=== PATIENT | male | born 1975 | race Two or more races ===

== ENCOUNTER 2018-08-02 11:10 | Emergency (ER) | payer OTHER ==
[~2018-08-02] VITALS: Ht 180.3 cm; Wt 90.3 kg
--- NOTE | 2018-08-02 11:32 | NUR ---
patient presented to the ER c/o chest sharp pain, non radiating. 7/10 pain scale level, 45 mins REGULATORY AFFAIRS COORDINATOR. On room air, breathing evenly, and unlabored. connected to the monitor, and pulse ox. kept comfortable, will continue to monitor accordingly.
[2018-08-02] MEDS ORDERED: ASPIRIN 325 MG TABLET ONE (11:41)
[2018-08-02] MEDS ORDERED: NITROGLYCERIN 0.4 MG/TAB BOTTLE ONE (11:41)
[2018-08-02 11:43] LABS: BASOPHILS % (AUTO) 0.5 % (0.0-2.0); EOSINOPHILS % (AUTO) 1.2 % (0.0-6.0); HEMATOCRIT 47 % (39-51); HEMOGLOBIN 15.9 g/dL (13.5-17.5); LYMPHOCYTES # (AUTO) 2.7 /CMM (0.8-4.8); LYMPHOCYTES % (AUTO) 46.6 % (20.0-44.0); MEAN CORPUSCULAR HGB CONC 34 g/dl (31.0-36.0); MEAN CORPUSCULAR VOLUME 85 fL (80-96); MONOCYTES # (AUTO) 0.6 /CMM (0.1-1.30); MONOCYTES % (AUTO) 10.3 % (2.0-12.0); NEUTROPHILS # (AUTO) 2.4 /CMM (1.8-8.9); NEUTROPHILS % (AUTO) 41.4 % (43.0-81.0); PLATELET COUNT (AUTO) 205 /CMM (150-450); WHITE BLOOD COUNT (AUTO) 5.9 K/uL (4.3-11.0)
[2018-08-02 11:55] LABS: CALCIUM, SERUM 8.9 mg/dL (8.5-10.1); CARBON DIOXIDE 27 mmol/L (21-32); CHLORIDE 103 mmol/L (98-107); GLUCOSE 87 mg/dL (74-106); SODIUM SERUM 138 mmol/L (136-145); UREA NITROGEN, BLOOD 20 mg/dL (7-18)
[2018-08-02] MEDS ORDERED: NITROGLYCERIN 0.4 MG/TAB BOTTLE SL ONE (12:00)
[2018-08-02] MEDS ORDERED: ASPIRIN 325 MG TABLET PO ONE (12:00)
--- NOTE | 2018-08-02 14:15 | NUR ---
PER ADMITTING PT WILL GO TO [facility], MORE INFO TO FOLLOW
--- NOTE | 2018-08-02 15:22 | NUR ---
received a call from annelise vela patient is going to [facility]. will call back for bed number and rest of info.
--- NOTE | 2018-08-02 15:36 | NUR ---
REGTERENCE CALLED, NUMBER TO GIVEN REPORT, [phone], PT GOING TO [id number]
--- NOTE | 2018-08-02 15:47 | NUR ---
CALLED [facility] AND SPOKE TO LASHELL ANTOINE AND REPORT GIVEN.
[2018-08-02 17:16] VITALS: BP 135/72
--- NOTE | 2018-08-02 17:18 | NUR ---
patient left via gurney accompanide by 2 emt's in no apparent distress noted.
== END 2018-08-02 17:18 | disposition short-term general hospital (02) ==
LOC: ER 11:14
DX: R07.89 Other chest pain (principal); R06.00 Dyspnea, unspecified; E78.00 Pure hypercholesterolemia, unspecified; F12.10 Cannabis abuse, uncomplicated
CPT/HCPCS: 36415; 71045; 80048; 84484; 85025; 85730; 87081; 93005; 99285; A4606

== ENCOUNTER 2021-01-30 13:22 | Inpatient (IN) | payer OTHER ==
[~2021-01-30] VITALS: Ht 170.2 cm; Wt 81.6 kg
[2021-01-30] MEDS ORDERED: ACETAMINOPHEN 325 MG TABLET PO ONE (14:30)
[2021-01-30] MEDS ORDERED: IBUPROFEN 600 MG TABLET PO ONE (14:30)
[2021-01-30] MEDS ORDERED: ACETAMINOPHEN 325 MG TABLET ONE (14:43)
[2021-01-30] MEDS ORDERED: IBUPROFEN 600 MG TABLET ONE (14:43)
--- NOTE | 2021-01-30 14:49 | NUR ---
TO ER BED 6. AAOX4. NOT IN DISTRESS, BUT SATTING @ 90% ON RA. AMBULATORY. CAME IN FOR LOW 02S AT AND SOB. PT REPORTS BEING COVID POSITIVE X 5 DAYS AGO. PT IS NOTED W/ SAT OF 90% ON RA. PLACED ON O2 VIA NC. WAS AT THE BEDSIDE FOR EVAL. ORDERS RECEIVED, NOTED AND CARRIED OUT.
[2021-01-30] MEDS ORDERED: AMOX-430 PO (14:59)
[2021-01-30] MEDS ORDERED: AZIT250T PO (14:59)
[2021-01-30] MEDS ORDERED: IBUP-1955 PO (15:00)
--- NOTE | 2021-01-30 15:08 | NUR ---
O2 REMOVED BY DR. ESPINOZA, TO HAVE ABG DONE IN 30 MINS, RT MADE AWARE
[2021-01-30 16:11] LABS: ABG BASE EXCESS 1.2 mmol/L; ABG OXYGEN SATURATION 93.9 % (92.0-98.5); ABG PCO2 35.2 mmHg (35.0-45.0); ABG PO2 62.7 mmHg (75.0-100.0); AaDO2 44.9 mmHg; COHb 0.7 % (0.5-1.5); MetHb 0.3 % (0.0-1.5); SITE, ABG Right Radial; VENT MODE, BG ROOM AIR
[2021-01-30] MEDS ORDERED: DEXAMETHASONE SOD PHOSPHATE 10 MG/ML VIAL ONE (16:28)
[2021-01-30] MEDS ORDERED: DEXAMETHASONE SOD PHOSPHATE 10 MG/ML VIAL IV ONE (16:30)
[2021-01-30] MEDS ORDERED: CEFTRIAXONE 1 G in IV D5W 50 ML IV ONE (16:30)
[2021-01-30] MEDS ORDERED: AZITHROMYCIN 500 MG in IV D5W 250 ML IV ONE (16:30)
[2021-01-30 17:15] LABS: BASOPHILS % (AUTO) 0.6 % (0.0-2.0); EOSINOPHILS % (AUTO) 0.2 % (0.0-6.0); HEMATOCRIT 49 % (39-51); HEMOGLOBIN 16.7 g/dL (13.5-17.5); LYMPHOCYTES # (AUTO) 0.6 K/uL (0.8-4.8); LYMPHOCYTES % (AUTO) 12.3 % (20.0-44.0); MEAN CORPUSCULAR HGB CONC 34 g/dl (31.0-36.0); MEAN CORPUSCULAR VOLUME 84 fL (80-96); MONOCYTES # (AUTO) 0.2 K/uL (0.1-1.30); MONOCYTES % (AUTO) 4.2 % (2.0-12.0); NEUTROPHILS # (AUTO) 4.4 K/uL (1.8-8.9); NEUTROPHILS % (AUTO) 82.7 % (43.0-81.0); PLATELET COUNT (AUTO) 140 K/uL (150-450); RED BLOOD CELL COUNT(AUTO) 5.76 MIL/uL (4.5-6.0); WHITE BLOOD COUNT (AUTO) 5.3 K/uL (4.3-11.0)
[2021-01-30 17:24] LABS: CALCIUM, SERUM 8.7 mg/dL (8.5-10.1); CARBON DIOXIDE 28 mmol/L (21-32); CHLORIDE 98 mmol/L (98-107); CREATININE 1.3 mg/dL (0.6-1.3); GLUCOSE 121 mg/dL (74-106); POTASSIUM 3.8 mmol/L (3.5-5.1); SODIUM SERUM 136 mmol/L (136-145); UREA NITROGEN, BLOOD 23 mg/dL (7-18)
[2021-01-30 17:30] LABS: ALANINE AMINOTRANSFERASE 52 U/L (12-78); ALBUMIN 3.3 g/dL (3.4-5.0); ALKALINE PHOSPHATASE 58 U/L (46-116); ASPARTATE AMINOTRANSFERASE 69 U/L (15-37); BILIRUBIN,TOTAL 0.5 mg/dL (0.2-1.0); TOTAL PROTEIN, SERUM 7.7 g/dL (6.4-8.2)
[2021-01-30 18:10] LABS: D-DIMER 0.93 mg/L(FEU (0.17-0.50)
[2021-01-30] MEDS ORDERED: MULT-447 PO (18:17)
[2021-01-30] MEDS ORDERED: ATOR10TA PO (18:17)
--- NOTE | 2021-01-30 18:21 | NUR ---
PT'S COVID ANTIGEN SWAB CANCELLED AND CHANGED TO COVID PCR BECAUSE PT IS STAYING INSTEAD OF BEING TRANSPORTED.
[2021-01-30 18:46] LABS: CREATINE KINASE, TOTAL 2022 U/L (39-308); FERRITIN 1996 ng/mL (8-388)
[2021-01-30] MEDS ORDERED: IOHEXOL-350 100 ML VIAL IV ONE (18:47)
[2021-01-30] MEDS ORDERED: CT SWABBABLE VALVE TRANS SET 1 EA INFUS.SET MC ONE (18:47)
[2021-01-30] MEDS ORDERED: IV NS 0.9% 250 ML IV ONE (18:47)
--- NOTE | 2021-01-30 22:55 | NUR ---
RN NOTE REPORT RECEIVED FROM ELINA VIGIL.
--- NOTE | 2021-01-30 22:59 | NUR ---
REPORT GIVEN TO ELINA REYES FOR CARLOS ALBERTO
--- NOTE | 2021-01-30 23:11 | NUR ---
PT TRANSPORTED TO UNIT ON [place] [address] WITH WITH ACLS PROTOCOL. NAD NOTED DURING TRANSPORT. PT AMBULATED FROM GURNEY TO BED W/O ASSIST
--- NOTE | 2021-01-30 23:13 | NUR ---
RN NOTE PT TRANSFERRED FROM ER VIA GURNEY. PT IS ON OF VIA [place] SHOWING NO SIGNS OF RESP DISTRESS. PT IS A&OX4. SKIN INTACT. PT IS AMBULATORY. IV LINE ON LEFT AC #18 NOTED. IV LINE FLUSHED, PATENT, AND INTACT WITH NO INFILTRATION. ALL SAFETY MEASURES IMPLEMENTED. CALL LIGHT WITHIN REACH. BED ALARM ON. CALL LIGHT WITHIN REACH. WILL CONTINUE TO MONITOR THROUGHOUT THE SHIFT.
[2021-01-31] VITALS: BP 108/71
[2021-01-31] MEDS ORDERED: ZOLPIDEM TARTRATE 5 MG TABLET PO PRN (00:30)
[2021-01-31 04:00] VITALS: BP 111/78
--- NOTE | 2021-01-31 07:00 | NUR ---
RN NOTES NO CHANGES IN PT CONDITION DURING SHIFT. PT IS ON 2L OF VIA NC SHOWING NO SIGNS OF RESP DISTRESS. PT IS A&OX4. IV LINE ON LEFT AC #18 NOTED. IV LINE FLUSHED, PATENT, AND INTACT WITH NO INFILTRATION. ALL MEDS GIVEN ORDERED. PT KEPT CLEAN AND COMFORTABLE. ALL SAFETY MEASURES IMPLEMENTED. CALL LIGHT WITHIN REACH. BED ALARM ON. CALL LIGHT WITHIN REACH. ENDORSED TO MORNING SHIFT RN FOR CARLOS ALBERTO.
[2021-01-31 07:03] LABS: BASOPHILS % (AUTO) 0.1 % (0.0-2.0); HEMATOCRIT 47 % (39-51); HEMOGLOBIN 16.7 g/dL (13.5-17.5); LYMPHOCYTES # (AUTO) 0.7 K/uL (0.8-4.8); LYMPHOCYTES % (AUTO) 17.5 % (20.0-44.0); MEAN CORPUSCULAR HGB CONC 35 g/dl (31.0-36.0); MEAN CORPUSCULAR VOLUME 84 fL (80-96); MONOCYTES # (AUTO) 0.3 K/uL (0.1-1.30); MONOCYTES % (AUTO) 7.4 % (2.0-12.0); NEUTROPHILS # (AUTO) 3.1 K/uL (1.8-8.9); PLATELET COUNT (AUTO) 144 K/uL (150-450); RED BLOOD CELL COUNT(AUTO) 5.66 MIL/uL (4.5-6.0); WHITE BLOOD COUNT (AUTO) 4.2 K/uL (4.3-11.0)
--- NOTE | 2021-01-31 07:20 | NUR ---
RN NOTES PATIENT RECEIVED IN BED, ALERT AND ORIENTED X4. PATIENT ON NASAL CANNULA 2 LITERS, DENIES SOB WITH EVEN NON-LABORED BREATHING, WITH NON-PRODUCTIVE COUGH. IV ACCESS INTACT AND PATENT. SKIN WARM AND DRY TO TOUCH. PATIENT DENIES ANY PAIN OR DISCOMFORT AT THIS TIME. SAFETY PRECAUTIONS IMPLEMENTED WITH BED LOCKED, BILATERAL SIDE RAILS UP, BED IN THE LOWEST POSITION, AND CALL LIGHT WITHIN EASY REACH. WILL CONTINUE TO MONITOR PATIENT.
[2021-01-31 08:00] VITALS: BP 131/68
[2021-01-31 08:16] LABS: C-REACTIVE PROTEIN 7.2 mg/dL (0.0-0.9)
[2021-01-31 08:18] LABS: CALCIUM, SERUM 8.8 mg/dL (8.5-10.1); CREATININE 1.1 mg/dL (0.6-1.3)
[2021-01-31] MEDS: ACETAMINOPHEN 325 MG TABLET PO PRN ×2 (08:48→20:11)
[2021-01-31] MEDS ORDERED: DEXAMETHASONE SOD PHOSPHATE 10 MG/ML VIAL IV SCH (09:00)
[2021-01-31] MEDS ORDERED: REMDESIVIR (CHARGED) 200 MG, *LOADING DOSE 1 EA in IV NS 0.9% 210 ML IV ONE (11:00)
[2021-01-31 12:00] VITALS: BP 108/57
[2021-01-31] MEDS: CEFTRIAXONE 1 G in IV D5W 50 ML IV SCH (15:00)
[2021-01-31 16:00] VITALS: BP 133/71
[2021-01-31] MEDS: AZITHROMYCIN 500 MG in IV D5W 250 ML IV SCH (16:00)
--- NOTE | 2021-01-31 18:18 | NUR ---
LICENSING COORDINATOR NOTES PATIENT IN BED RESTING COMFORTABLY. ALERT AND ORIENTED X4. ON NASAL CANNULA 2 LITERS, WITH NO SIGNS OF RESPIRATORY DISTRESS WITH NON-PRODUCTIVE COUGH PRESENT. PATIENT ON TELE MONITOR SR 90S. SKIN KEPT CLEAN, WARM, AND DRY TO TOUCH. IV ACCESS INTACT AND PATENT SALINE LOCK. PATIENT DENIES ANY PAIN OR DISCOMFORT. MET ALL OF PATIENT'S NEEDS. SAFETY PRECAUTIONS IMPLEMENTED WITH BED LOCKED, BILATERAL SIDE RAILS UP, BED IN THE LOWEST POSITION, AND CALL LIGHT WITHIN EASY REACH. WILL ENDORSE PLAN OF CARE TO UPCOMING RN.
--- NOTE | 2021-01-31 19:30 | NUR ---
RN NOTE RECEIVED PATIENT IN BED. ON COVID ISOLATION. A/OX3. ON OXYGEN 2L/MIN VIA NASAL CANNULA. RESPIRATIONS ARE EVEN AND UNLABORED. NO S/S SOB NOTED. NO S/O PAIN AT THIS TIME. EXTERNAL TELE MONITOR READS SINUS TACHYCARDIA HR 104. IN NO APPARENT DISTRESS. IV ACCESS IN LAC#18 PATENT AND SALINE LOCKED. BED IS LOW AND LOCKED, HOB ELEVATED IN SEMI FOWLERS, SIDE RIALS UP X2, CALL LIGHT WITHIN REACH. WILL CONTINUE TO MONITOR THROUGHOUT SHIFT.
[2021-01-31 20:00] VITALS: BP 111/68
--- NOTE | 2021-01-31 20:11 | NUR ---
RN NOTE ADMNISTERED PRN TYLENOL 650MG FOLR TEMP 100.8. ALSO ADMNISTERED PRN AMBIEN 5MG PER PATIENT REQUEST FOR SLEEP. ALSO REQUESTED EAR PLUGS BUT THERE IS NONE AVAILABLE AT THIS TIME.
[2021-02-01] VITALS: BP 117/68
[2021-02-01 04:00] VITALS: BP 130/72
[2021-02-01] MEDS: ACETAMINOPHEN 325 MG TABLET PO PRN (04:50)
[2021-02-01 06:11] LABS: BASOPHILS % (AUTO) 0.1 % (0.0-2.0); HEMATOCRIT 43 % (39-51); HEMOGLOBIN 15.6 g/dL (13.5-17.5); LYMPHOCYTES % (AUTO) 14.2 % (20.0-44.0); MEAN CORPUSCULAR HGB CONC 36 g/dl (31.0-36.0); MEAN CORPUSCULAR VOLUME 83 fL (80-96); MONOCYTES # (AUTO) 0.7 K/uL (0.1-1.30); MONOCYTES % (AUTO) 10.4 % (2.0-12.0); NEUTROPHILS # (AUTO) 5.4 K/uL (1.8-8.9); NEUTROPHILS % (AUTO) 75.3 % (43.0-81.0); PLATELET COUNT (AUTO) 164 K/uL (150-450); RED BLOOD CELL COUNT(AUTO) 5.23 MIL/uL (4.5-6.0); WHITE BLOOD COUNT (AUTO) 7.1 K/uL (4.3-11.0)
[2021-02-01 06:30] LABS: ALBUMIN 2.9 g/dL (3.4-5.0); BILIRUBIN,TOTAL 0.4 mg/dL (0.2-1.0); CALCIUM, SERUM 8.4 mg/dL (8.5-10.1); CREATININE 1.1 mg/dL (0.6-1.3); POTASSIUM 4.1 mmol/L (3.5-5.1)
--- NOTE | 2021-02-01 07:02 | NUR ---
RN NOTE ON COVID ISOLATION. A/OX3. ON OXYGEN 4L/MIN VIA NASAL CANNULA. NO S/O PAIN AT THIS TIME. TYLENOL GIVEN THROUGHOUT SHIFT FOR TEMP. TELE MONITOR READS SINUS TACHYCARDIA/ SINUS RHYTHM. NO DISTRESS. IV ACCESS IN LAC#18 BED IS LOW AND LOCKED, HOB ELEVATED IN SEMI FOWLERS, SIDE RIALS UP X2, CALL LIGHT WITHIN REACH. PATIENT WAS ABLE TO DO SELF PRONING. WILL ENDORSE TO ONCOMING SHIFT.
--- NOTE | 2021-02-01 07:43 | NUR ---
RN OPENING NOTES RECEIVED PT WALKING AROUND IN ROOM. ALERT AND ORIENTED X4. NO C/O PAIN NOTED. ON NASAL CANNULA 2 LITERS, NO C/O SOB. NON-PRODUCTIVE COUGH PRESENT. IV ACCESS INTACT, PATENT W/ NO SIGNS OF INFILTRATION. PT BED LOCKED, BILATERAL SIDE RAILS UP, BED IN THE LOWEST POSITION, AND CALL LIGHT WITHIN REACH. WILL CONTINUE TO MONITOR.
[2021-02-01 08:00] VITALS: BP 121/71
[2021-02-01] MEDS: DEXAMETHASONE SOD PHOSPHATE 10 MG/ML VIAL IV SCH ×3 (08:40→23:59)
--- NOTE | 2021-02-01 09:31 | NUR ---
MD NAE FELICIANO. UPDATED DR. REGARDING PT CURRENT CONDITION. WILL CONTINUE TO MONITOR.
[2021-02-01] MEDS: REMDESIVIR (CHARGED) 100 MG in IV NS 0.9% 100 ML IV SCH (11:11)
[2021-02-01 12:01] VITALS: BP 130/90
[2021-02-01] MEDS: CEFTRIAXONE 1 G in IV D5W 50 ML IV SCH (15:39)
[2021-02-01 16:00] VITALS: BP 132/82
[2021-02-01] MEDS: AZITHROMYCIN 500 MG in IV D5W 250 ML IV SCH (16:40)
--- NOTE | 2021-02-01 18:02 | NUR ---
RN CLOSING NOTES PT WALKING AROUND IN ROOM. ALERT AND ORIENTED X4. NO C/O PAIN NOTED. ON NASAL CANNULA 2 LITERS, BUT IS ABLE TO TOLERATE ROOM AIR. NO C/O SOB. PT HAS BEEN SLEEPING ON AND OFF IN PRONE POSITION. IV ACCESS FLUSHED,PATENT AND INTACT W/ NO SIGNS OF INFILTRATION. 1ST BAG OF REMDESIVIR GIVEN. PT KEPT CLEAN, DRY AND COMFORTABLE. PT BED LOCKED, BILATERAL SIDE RAILS UP, BED IN THE LOWEST POSITION, AND CALL LIGHT WITHIN REACH. ENDORSE TO SSN/SSBN ASSISTANT NAVIGATOR NURSE. .
--- NOTE | 2021-02-01 19:46 | NUR ---
RN NOTE PATIENT ALERT AND ORIENTED X4, ABLE TO MAKE NEEDS KNOWN. AMBULATORY, GAIT STEADY. ON O2 4L VIA NASAL CANNULA, O2 SAT 94%. DENIES ANY PAIN OR DISCOMFORT AT THIS TIME. IV ACCESS ON LEFT AC # 18, PATENT AND INTACT. BED LOCKED AND IN LOWEST POSITION. CALL LIGHT WITHIN REACH. ALL NEEDS ANTICIPATED.
[2021-02-01 20:00] VITALS: BP 134/84
[2021-02-02] VITALS: BP 122/71
[2021-02-02 04:00] VITALS: BP 109/59
[2021-02-02 06:19] LABS: BASOPHILS % (AUTO) 0.1 % (0.0-2.0); HEMATOCRIT 45 % (39-51); HEMOGLOBIN 16.1 g/dL (13.5-17.5); LYMPHOCYTES # (AUTO) 0.8 K/uL (0.8-4.8); LYMPHOCYTES % (AUTO) 14.3 % (20.0-44.0); MEAN CORPUSCULAR HGB CONC 36 g/dl (31.0-36.0); MEAN CORPUSCULAR VOLUME 83 fL (80-96); MONOCYTES # (AUTO) 0.8 K/uL (0.1-1.30); MONOCYTES % (AUTO) 14.5 % (2.0-12.0); NEUTROPHILS # (AUTO) 3.9 K/uL (1.8-8.9); NEUTROPHILS % (AUTO) 71.1 % (43.0-81.0); PLATELET COUNT (AUTO) 161 K/uL (150-450); RED BLOOD CELL COUNT(AUTO) 5.39 MIL/uL (4.5-6.0); WHITE BLOOD COUNT (AUTO) 5.5 K/uL (4.3-11.0)
[2021-02-02 06:28] LABS: ALBUMIN 2.8 g/dL (3.4-5.0); BILIRUBIN,TOTAL 0.5 mg/dL (0.2-1.0); CALCIUM, SERUM 8.4 mg/dL (8.5-10.1); CREATININE 0.9 mg/dL (0.6-1.3); POTASSIUM 4.2 mmol/L (3.5-5.1)
--- NOTE | 2021-02-02 06:52 | NUR ---
RN NOTE PATIENT ALERT AND ORIENTED X4. ON O2 4L VIA NASAL CANNULA, NO SIGNS OF RESPIRATORY DISTRESS. DENIES ANY PAIN OR DISCOMFORT AT THIS TIME. IV ACCESS ON LEFT AC # 18, PATENT AND INTACT. SLEPT ON PRONE POSITION LAST NIGHT. ALL DUE MEDS GIVEN ORDERED. BED LOCKED AND IN LOWEST POSITION. CALL LIGHT WITHIN REACH. WILL ENDORSE TO AM SHIFT.
[2021-02-02 07:29] LABS: C-REACTIVE PROTEIN 3.7 mg/dL (0.0-0.9)
[2021-02-02] MEDS: DEXAMETHASONE SOD PHOSPHATE 10 MG/ML VIAL IV SCH ×2 (10:00→17:44)
[2021-02-02] MEDS: REMDESIVIR (CHARGED) 100 MG in IV NS 0.9% 100 ML IV SCH (11:39)
[2021-02-02 11:49] VITALS: BP 112/68
[2021-02-02 12:55] VITALS: BP 110/60
[2021-02-02] MEDS: AZITHROMYCIN 250 MG TABLET PO SCH (17:44)
[2021-02-02] MEDS: CEFTRIAXONE 1 G in IV D5W 50 ML IV SCH (17:47)
[2021-02-02 19:01] VITALS: BP 110/60
[2021-02-02 20:00] VITALS: BP 118/85
--- NOTE | 2021-02-02 20:00 | NUR ---
BIT SHARPENER OPERATOR NOTES PATIENT IN BED ALERT AND ORIENTED X4. ON NASAL CANNULA 4 LITERS, WITH NO SIGNS OF RESPIRATORY DISTRESS NO SOB NO DISTRESS NOTED . ON TELE MONITOR SR 78. SKIN KEPT CLEAN, WARM, AND DRY TO TOUCH. IV ACCESS INTACT AND PATENT SALINE LOCK. PATIENT DENIES ANY PAIN OR DISCOMFORT. ALL NEEDS ATTENDED TOO . SAFETY PRECAUTIONS IMPLEMENTED WITH BED LOCKED, BILATERAL SIDE RAILS UP, BED IN THE LOWEST POSITION, AND CALL LIGHT WITHIN EASY REACH, V/S STABLE AFEBRILE ,WILL CONTINUE TO MONITOR PTS.
[2021-02-03] VITALS: BP 120/74
[2021-02-03] MEDS: DEXAMETHASONE SOD PHOSPHATE 10 MG/ML VIAL IV SCH ×3 (01:07→20:11)
[2021-02-03 04:00] VITALS: BP 114/79
--- NOTE | 2021-02-03 05:34 | NUR ---
RN NOTE PATIENT AWAKE IN BED, ALERT AND ORIENTED X4, ABLE TO VERBALIZE NEEDS, ON IV ATB NO ASE NOTED, ON 4 LITERS BREATHING EVEN AND UNLABORED, ALL NEEDS ATTENDED TOO , WILL ENDORSED TO RN DAY SHIFT FOR CONTINUITY OF CARE
--- NOTE | 2021-02-03 07:10 | NUR ---
RN OPENING NOTES RECEIVED PT IN BED AWAKE, A/O X4. ON O2 VIA NASAL CANNULA 4L. NO SOB OR ANY S/S OF RESPIRATORY DISTRESS NOTED. TELE MONITOR READING SR. IV ACCESS INTACT AND PATENT. NO PAIN OR DISCOMFORT REPORTED AT THIS TIME. SAFETY MEASURES IMPLEMENTED. CALL LIGHT WITHIN REACH. BED LOCKED AND IN LOWEST POSITION WITH SIDE RAILS UP X2. WILL CONTINUE TO MONITOR.
[2021-02-03 08:00] VITALS: BP_SYST 116; BP_SYST 147; BP_DIAS 67; BP_DIAS 93
[2021-02-03 12:00] VITALS: BP 115/75
[2021-02-03 12:34] LABS: BASOPHILS % (AUTO) 0.1 % (0.0-2.0); HEMATOCRIT 46 % (39-51); HEMOGLOBIN 15.9 g/dL (13.5-17.5); LYMPHOCYTES # (AUTO) 0.7 K/uL (0.8-4.8); LYMPHOCYTES % (AUTO) 7.6 % (20.0-44.0); MEAN CORPUSCULAR HGB CONC 34 g/dl (31.0-36.0); MEAN CORPUSCULAR VOLUME 86 fL (80-96); MONOCYTES # (AUTO) 1.1 K/uL (0.1-1.30); MONOCYTES % (AUTO) 12.3 % (2.0-12.0); NEUTROPHILS # (AUTO) 7.1 K/uL (1.8-8.9); PLATELET COUNT (AUTO) 198 K/uL (150-450); WHITE BLOOD COUNT (AUTO) 8.9 K/uL (4.3-11.0)
[2021-02-03 13:04] LABS: CALCIUM, SERUM 8.9 mg/dL (8.5-10.1); POTASSIUM 4.8 mmol/L (3.5-5.1)
[2021-02-03 13:10] LABS: ALBUMIN 2.8 g/dL (3.4-5.0); BILIRUBIN,DIRECT 0.2 mg/dL (0.0-0.2); BILIRUBIN,TOTAL 0.5 mg/dL (0.2-1.0); TOTAL PROTEIN, SERUM 6.9 g/dL (6.4-8.2)
[2021-02-03] MEDS: REMDESIVIR (CHARGED) 100 MG in IV NS 0.9% 100 ML IV SCH (13:42)
[2021-02-03] MEDS: CEFTRIAXONE 1 G in IV D5W 50 ML IV SCH (15:34)
[2021-02-03 16:00] VITALS: BP 118/76
[2021-02-03] MEDS: AZITHROMYCIN 250 MG TABLET PO SCH (16:46)
--- NOTE | 2021-02-03 18:47 | NUR ---
RN CLOSING NOTES NO SIGNIFICANT CHANGES THROUGHOUT THE SHIFT. NO SOB OR ANY DISTRESS NOTED. NO PAIN REPORTED AT THIS TIME. ALL DUE MEDS GIVEN. KEPT CLEAN AND COMFORTABLE. SAFETY MEASURES IN PLACE. WILL ENDORSE TO NIGHT RN FOR CARLOS ALBERTO.
[2021-02-03 20:00] VITALS: BP 136/70
--- NOTE | 2021-02-03 20:00 | NUR ---
ROOM SERVER NOTES PATIENT IN BED ALERT AND ORIENTED X4. ON NASAL CANNULA 4 LITERS, WITH NO SIGNS OF RESPIRATORY DISTRESS NO SOB NO DISTRESS NOTED . ON TELE MONITOR SR 76. SKIN KEPT CLEAN, WARM, AND DRY TO TOUCH. IV ACCESS INTACT AND PATENT SALINE LOCK. PATIENT DENIES ANY PAIN OR DISCOMFORT. ALL NEEDS ATTENDED TOO . SAFETY PRECAUTIONS IMPLEMENTED WITH BED LOCKED, BILATERAL SIDE RAILS UP, BED IN THE LOWEST POSITION, AND CALL LIGHT WITHIN EASY REACH, V/S STABLE AFEBRILE ,WILL CONTINUE TO MONITOR PTS.
[2021-02-04] VITALS: BP 134/80
[2021-02-04 04:00] VITALS: BP 117/74
[2021-02-04 06:20] LABS: HEMATOCRIT 45 % (39-51); HEMOGLOBIN 15.5 g/dL (13.5-17.5); LYMPHOCYTES # (AUTO) 0.9 K/uL (0.8-4.8); MEAN CORPUSCULAR HGB CONC 34 g/dl (31.0-36.0); MEAN CORPUSCULAR VOLUME 85 fL (80-96); MONOCYTES # (AUTO) 1.1 K/uL (0.1-1.30); MONOCYTES % (AUTO) 13.2 % (2.0-12.0); NEUTROPHILS # (AUTO) 6.1 K/uL (1.8-8.9); NEUTROPHILS % (AUTO) 75.8 % (43.0-81.0); PLATELET COUNT (AUTO) 211 K/uL (150-450); RED BLOOD CELL COUNT(AUTO) 5.35 MIL/uL (4.5-6.0); WHITE BLOOD COUNT (AUTO) 8.1 K/uL (4.3-11.0)
[2021-02-04 06:28] LABS: ALBUMIN 2.6 g/dL (3.4-5.0); BILIRUBIN,DIRECT 0.2 mg/dL (0.0-0.2); BILIRUBIN,TOTAL 0.6 mg/dL (0.2-1.0); CALCIUM, SERUM 8.3 mg/dL (8.5-10.1); CREATININE 0.9 mg/dL (0.6-1.3); POTASSIUM 4.8 mmol/L (3.5-5.1); TOTAL PROTEIN, SERUM 6.4 g/dL (6.4-8.2)
--- NOTE | 2021-02-04 06:35 | NUR ---
RN NOTE PATIENT AWAKE IN BED, ALERT AND ORIENTED X4, ABLE TO VERBALIZE NEEDS, ON IV ATB NO ASE NOTED, ON 4 LITERS of [id number] NO DISTRESS NOTED. BREATHING EVEN AND UNLABORED, ALL NEEDS ATTENDED TOO , WILL ENDORSED TO RN DAY SHIFT FOR CONTINUITY OF CARE
--- NOTE | 2021-02-04 07:35 | NUR ---
METAL GRADER OPENING NOTES RECEIVED PATIENT IN BED, AWAKE, A/O X4. PATIENT ON OXYGEN THERAPY @ 4 LPM VIA NASAL CANULA; BREATHING EVEN AND UNLABORED, NO SOB PRESENT AT THIS TIME. TELE MONITOR WITH A CURRENT READING OF SR 82. NO COMPLAINS OF PAIN. IV ACCESS ON LAC G #18, SL PRESENT AND INTACT. SAFETY PRECAUTIONS IN PLACE; BED IN LOW POSITION AND LOCKED, RAILS UP X2, CALL LIGHT WITHIN REACH. WILL CONTINUE TO MONITOR PATIENT.
[2021-02-04] MEDS: DEXAMETHASONE SOD PHOSPHATE 10 MG/ML VIAL IV SCH (08:22)
[2021-02-04] MEDS ORDERED: DEXA6TAB6 PO (08:28)
[2021-02-04 09:15] VITALS: BP 102/68
[2021-02-04 12:04] VITALS: BP 105/69
[2021-02-04] MEDS: REMDESIVIR (CHARGED) 100 MG in IV NS 0.9% 100 ML IV SCH (14:03)
[2021-02-04] MEDS: CEFTRIAXONE 1 G in IV D5W 50 ML IV SCH (15:15)
--- NOTE | 2021-02-04 16:51 | NUR ---
BOILER BLOWERTINNER HELPER NOTES PATIENT DISCHARGED HOME IN MEDICALLY STABLE CONDITION. PATIENT A/O X4, ON ROOM AIR, ABLE TO MAKE NEED KNOWN. ALL DISCHARGE PAPERWORK READY; TEACHING PROVIDED TO PATIENT REGARDING PRESCRIPTION AND PHYSICIAN INSTRUCTIONS; PATIENT VERBALIZED UNDERSTANDING. BELONGINGS ACCOUNTED FOR AND FORM SIGNED WELL. SKIN INTACT. IV ACCESS REMOVED PRIOR PATIENT LEAVING THE FLOOR. PATIENT LEFT THE UNIT WEARING A MASK AND IN A WHEELCHAIR ACCOMPANIED BY EARTH SCIENCE LABORATORY TECHNICIAN. PATIENT LEFT THE UNIT AT 1645 AND WAS PICKED UP BY FRIEND IN A PRIVATE CAR.
== END 2021-02-04 16:42 | disposition home or self-care (01) | DRG 137 ==
LOC: ER 13:30 → TELE1 22:28
PROVIDERS: ADMIT Internal Medicine; ATTEND Internal Medicine
PROC: XW033E5 Introduction of Remdesivir Anti-infective into Peripheral Vein, Percutaneous Approach, New Technology Group 5 (ICD-10-PCS; principal; 2021-01-31)
DX: U07.1 COVID-19 (principal); J96.01 Acute respiratory failure with hypoxia; J12.82 Pneumonia due to coronavirus disease 2019; E78.5 Hyperlipidemia, unspecified; E78.00 Pure hypercholesterolemia, unspecified; J18.9 Pneumonia, unspecified organism; J15.9 Unspecified bacterial pneumonia; Z79.899 Other long term (current) drug therapy
CPT/HCPCS: 36415; 36600; 71045-TC; 80048-TC; 80053-TC; 80076-TC; 82550-TC; 82553; 82728-TC; 83605-TC; 83615-TC; 84484-TC; 85025-TC; 85378-TC; 85610-TC; 85730-TC; 86140-TC; 87040-TC; 87081-TC; 93970-TC; A4216; G0378; J0456; J0696; J1100; J7030; J7040; J7050; J7060; Q9967; U0003